=== PATIENT | male | born 1950 | race Caucasian/White ===

== ENCOUNTER 2017-05-29 15:34 | Emergency (ER) | payer MEDICARE, OTHER ==
[2017-05-29 15:58] VITALS: TEMP 98.1
--- NOTE | 2017-05-29 16:22 | ED.PDOC ---
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 Occurred: just prior to arrival Pain - Lower Extremity: moderate: Left Foot Method of Injury: other - crush injury Improving Factors: rest Worsening Factors: movement Allergies/Adverse Reactions: Allergies NO KNOWN ALLERGY Allergy (Verified 05/29/17 15:57) Home Medications: Ambulatory Orders Acetamin W/Cod #3 Tab [Tylenol w/CODEINE #3] 1 ea PO Q4HR #20 tab 05/29/17 Amoxicillin [Amoxil] 1,000 mg PO BID #30 cap 05/29/17 Review of Systems - Review of Systems Constitutional: States: no symptoms reported EENTM: States: no symptoms reported Respiratory: States: no symptoms reported Cardiology: States: no symptoms reported Musculoskeletal: States: see HPI Past Medical History (General) - Patient Medical History Hx Stroke: No Hx Congestive Heart Failure: No Hx Diabetes: No Hx Cancer: No Hx Hepatitis C: No Surgical History: cholecystectomy - Vaccination History Hx Tetanus, Diphtheria Vaccination: No Hx Influenza Vaccination: No - Social History Hx Tobacco Use: No Hx Chewing Tobacco Use: No Hx Alcohol Use: No Hx Substance Use: No Hx Substance Use Treatment: No Hx Depression: No Feels Threatened In Home Enviroment: No Feels Threatened In a Relationship: No Hx Physical Abuse: No Hx Emotional Abuse: No Hx Suspected Abuse: No Family Medical History - Family History Mother Family History: Unknown Physical Exam - Physical Exam General Appearance: Alert, No apparent distress Eyes, Ears, Nose, Throat: PERRL/EOMI, normal ENT inspection Neck: non-tender, supple Cardiovascular/Respiratory: regular rate, rhythm, no M/R/G, normal peripheral pulses, no respiratory distress Gastrointestinal/Abdominal: non-tender, no organomegaly Back: no vertebral tenderness Thigh/Hip: no evidence of injury Leg: no evidence of injury Knee: no evidence of injury Ankle: no evidence of injury Foot: bone tenderness, limited ROM - painful, soft tissue tenderness, swelling - left foot, other - superficial abrasions noted Mental Status: alert, oriented x 3 Skin: normal color, warm/dry Progress - Progress Progress: 05/29/17 16:27 Vital Signs - 8 hr 05/29/17 15:35 Temperature 98.1 F Pulse Rate [R 86 Arm] Respiratory 20 Rate Blood Pressure 154/87 [left brachial] O2 Sat by Pulse 94 L Oximetry - EKG/XRAY/CT XRAY: foot-? fracture need ct foot CT Ordered: Yes - fracture cuneiforn and 2nd metetarsal left foot Departure - Departure Clinical Impression: Crush fracture Fracture of foot Qualifiers: Encounter type: initial encounter Fracture type: closed Laterality: left Qualified Code(s): S92.902A - Unspecified fracture of left foot, initial encounter for closed fracture Time of Disposition: 17:50 Disposition: Discharge to Home or Self Care Condition: Fair Departure Forms: ED Discharge - Pt. Copy, Patient Portal Self Enrollment Instructions: Foot Fracture, DI for Foot Fracture Referrals: Rodrigo Gates MD [Primary Care Provider] - 1-2 Weeks Prescriptions: Acetamin W/Cod #3 Tab [Tylenol w/CODEINE #3] 1 ea PO Q4HR #20 tab Amoxicillin [Amoxil] 1,000 mg PO BID #30 cap Home Medications: Ambulatory Orders Acetamin W/Cod #3 Tab [Tylenol w/CODEINE #3] 1 ea PO Q4HR #20 tab 05/29/17 Amoxicillin [Amoxil] 1,000 mg PO BID #30 cap 05/29/17 Additional Instructions: CONTINUE WITH ICE PACK 3 X A DAY DURING WAKING HOURS ONLY FOR 3 DAYS ;Elevate left foot 20 degrees at bedtime;Call Dr. Jade orthopedist in am for appointment
--- NOTE | 2017-05-29 16:29 | RAD ---
EXAM DESCRIPTION: Foot,Left 2 Views CLINICAL HISTORY: 67 years, Male, Crush injury too L foot COMPARISON: None TECHNIQUE: Two views of the left foot FINDINGS: Left foot is abnormal in the region of the midfoot. Posteriorly and accessory ossicle at the least tendon insertion into the calcaneus is noted with sensory ossicle or prominent protuberance posterior to the ankle mortise noted on the lateral view. On the AP view, the first cuneiform is abnormal in appearance and almost appears to have a bifid appearance and is likely fractured. In addition there is either a large accessory ossicle at the lateral aspect of the tarsal navicular or a fracture of the lateral margin of the tarsal navicular. The metatarsals and phalanges on the AP view appear intact. A much of the findings involving the midfoot or acute and how much or chronic is difficult to assess. Consider CT or MR examination for further evaluation of the midfoot. IMPRESSION: 1. Abnormal left foot with an unusual almost bifid appearance of the first cuneiform suggesting possibly an acute or chronic fracture as well as either an accessory ossicle or fracture at the lateral margin of the tarsal navicular. Consider further evaluation with CT or MRI examination. 2. Accessory ossification at the Achilles tendon insertion. 3. No definite injury to the metatarsals or phalanges. Electronically signed by: Pasquale Moody MD 05/29/2017 4:28 PM CDT
[2017-05-29] MEDS: HYDROcodone 10MG/APAP 325MG 1 EA TAB PO ONE (16:46)
[2017-05-29] MEDS: AMOXICILLIN 500 MG CAP PO ONE (16:46)
[2017-05-29] MEDS: TETANUS,DIPHTHERIA,PERTUSSIS 1 EA SYG IM ONE (17:06)
--- NOTE | 2017-05-29 17:34 | CT ---
EXAM DESCRIPTION: Lower Extremity CLINICAL HISTORY: 67 years Male, pain left foot/crush injury COMPARISON: None. TECHNIQUE: Noncontrast CT of the left foot with MPR reformatted images. FINDINGS: A comminuted fracture of the first cuneiform involving the medial and plantar aspect of the bone is present. On coronal imaging there is hypertrophic degenerative change at the articulation between the first and second cuneiforms. A very subtle nondisplaced fracture at the inferior base of the second metatarsal is noted. Metatarsal shafts are intact. Laterally at the tarsal navicular degenerative cystic changes and hypertrophic spurring at the articulation between the lateral navicular and the calcaneus is present but without either a fracture or accessory ossicle. 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 Additional fractures involving the cuboid or the second or third cuneiform or the third through fifth metatarsal bases are not apparent. IMPRESSION: 1. Mildly comminuted the fracture of the first cuneiform inferiorly and medially in essentially anatomic alignment and small fracture at the inferior base of the second metatarsal. 2. Hypertrophic tarsal navicular that articulates and has the secondary degenerative changes with the calcaneus superiolaterally as well as inferomedially raising the possibility that the patient has an element of fibrous coalition or maldevelopment of the hindfoot. 3. Additional fractures involving the hindfoot or ankle are not apparent. 4. The first as well as third through fifth metatarsal bases are intact without additional fractures of the forefoot identified. Electronically signed by: Pasquale Moody MD 05/29/2017 5:32 PM CDT
[2017-05-29] MEDS: PROMETHAZINE HCL INJ 25 MG/ML VIAL IM ONE (18:05)
[2017-05-29] MEDS: MORPHINE SULFATE INJ 10 MG/ML VIAL IM ONE (18:05)
[2017-05-29 18:48] VITALS: O2SAT 99
[2017-05-29 20:19] VITALS: BP 164/99
== END 2017-05-29 20:05 | disposition home or self-care (01) ==
LOC: ER 15:34
DX: S92.322A Displaced fracture of second metatarsal bone, left foot, initial encounter for closed fracture (principal); S92.242A Displaced fracture of medial cuneiform of left foot, initial encounter for closed fracture; Z23 Encounter for immunization; W23.0XXA Caught, crushed, jammed, or pinched between moving objects, initial encounter; Y92.9 Unspecified place or not applicable
CPT/HCPCS: 73620; 73700; 90471; 90715; J2270; J2550

== ENCOUNTER → 2017-06-12 | Outpatient (CLI) | payer MEDICARE ==
--- NOTE | 2017-06-12 08:53 | RAD ---
EXAM DESCRIPTION: Foot,Left 3 Views CLINICAL HISTORY: FX COMPARISON: CT dated May 29, 2017. IMPRESSION: 3 views of the left foot. Fracture of the first cuneiform bone is slightly less conspicuous on today's study consistent with normal progressive healing. No other significant change is present. Electronically signed by: Rich Alberts MD 06/12/2017 8:52 AM [facility]
== END | disposition home or self-care (01) ==
LOC: RAD 07:39
PROVIDERS: ATTEND Orthopaedic Surgery
DX: S92.215D Nondisplaced fracture of cuboid bone of left foot, subsequent encounter for fracture with routine healing (principal); X58.XXXA Exposure to other specified factors, initial encounter

== ENCOUNTER → 2017-06-26 | Outpatient (CLI) | payer MEDICARE ==
--- NOTE | 2017-06-26 10:03 | RAD ---
EXAM DESCRIPTION: Foot,Left 3 Views CLINICAL HISTORY: 67 years, Male, CLOSED FX OF CUNEIFORM BONE LEFT FOOT COMPARISON: June 12, 2017, May 29, 2017 TECHNIQUE: AP, lateral, and oblique views of the left foot FINDINGS: Mild osteopenia and modest degenerative changes are present. The previously described fracture of the first cuneiform remains less conspicuous than the original study May 29, 2017. Little interval change from most recent study is noted. The degenerative hypertrophic changes at the lateral aspect of the tarsal navicular are unchanged. New injuries are not apparent. IMPRESSION: Stable left foot with incompletely healed first cuneiform fracture. Electronically signed by: Pasquale Moody MD 06/26/2017 10:01 AM [facility]
== END | disposition home or self-care (01) ==
LOC: RAD 07:16
PROVIDERS: ATTEND Orthopaedic Surgery
DX: S92.251D Displaced fracture of navicular [scaphoid] of right foot, subsequent encounter for fracture with routine healing (principal)

== ENCOUNTER 2018-08-09 17:24 | Emergency (ER) | payer MEDICARE ==
[2018-08-09] MEDS ORDERED: CHLORHEXIDINE GLUCONATE 4 % 15 ML UD TOP ONE (17:40)
[2018-08-09] MEDS ORDERED: LIDOCAINE 1% W/ EPINEPHRINE 20 ML VIAL INJ ONE (17:40)
[2018-08-09 17:46] VITALS: TEMP 97.7
--- NOTE | 2018-08-09 17:46 | ED.PDOC ---
History of Present Illness - General Chief Complaint: Laceration Time Seen by Provider: 08/09/18 17:43 Source: patient Exam Limitations: no limitations - History of Present Illness Initial Comments: Patient was working at home and pulled a metal bar down that struck his forehead. It left a u-shaped laceration in the mid-forehead. He did not fall down nor lose consciousness. It is not painful. He does not take any anti- coagulants. No other complaints. Timing/Duration: 1/2 hour Severity: mild Improving Factors: nothing Worsening Factors: nothing Associated Symptoms: denies symptoms Allergies/Adverse Reactions: Allergies NO KNOWN ALLERGY Allergy (Verified 05/29/17 15:57) Home Medications: Ambulatory Orders Omeprazole 20 mg PO DAILY 08/09/18 Review of Systems - Review of Systems Constitutional: States: no symptoms reported, chills Respiratory: States: no symptoms reported Cardiology: States: no symptoms reported Gastrointestinal/Abdominal: States: no symptoms reported Genitourinary: States: no symptoms reported Musculoskeletal: States: no symptoms reported Skin: States: see HPI Neurological: States: no symptoms reported Endocrine: States: no symptoms reported Hematologic/Lymphatic: States: no symptoms reported Past Medical History (General) - Patient Medical History Hx Stroke: No Hx Congestive Heart Failure: No Hx Diabetes: No Hx Cancer: No Hx Hepatitis C: No - Vaccination History Hx Tetanus, Diphtheria Vaccination: No Hx Influenza Vaccination: No - Social History Hx Tobacco Use: No Hx Chewing Tobacco Use: No Hx Alcohol Use: No Hx Substance Use: No Hx Substance Use Treatment: No Hx Depression: No Hx Physical Abuse: No Hx Emotional Abuse: No Hx Suspected Abuse: No Family Medical History - Family History Mother Family History: Unknown Physical Exam - Physical Exam General Appearance: Alert Eye Exam: bilateral normal Ears, Nose, Throat: normal ENT inspection Neck: non-tender, full range of motion, supple Respiratory: lungs clear, normal breath sounds Cardiovascular/Chest: regular rate, rhythm, no edema Gastrointestinal/Abdominal: normal bowel sounds, non tender, soft 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 3 cc of lidocaine with epinephrine was used to gain excellent local anesthesia. Wound was irrigated with 30 cc sterile NS. 9 interrupted sutures using 5-0 proline were placed and excellent wound edge approximation was obtained. Patient tolerated procedure well. Area was clean, dry and hemostatic upon completion. topical antibiotic applied. E.R. warnings given. Care instructions given. Questions were elicited and answered. The patient voiced understanding and agreement with the plan. Departure - Departure Clinical Impression: Laceration Disposition: Discharge to Home or Self Care Condition: Good Departure Forms: ED Discharge - Pt. Copy, Patient Portal Self Enrollment Instructions: DI for Laceration Repair, How to Care for a Laceration After Repair Diet: resume usual diet Activity: increase activity as tolerated Referrals: Rodrigo Gates MD [Primary Care Provider] - 1-2 Weeks Home Medications: Ambulatory Orders Omeprazole 20 mg PO DAILY 08/09/18 Additional Instructions: Return to your regular doctor in 5-7 days for suture removal. Return to the E.R. for increased bleeding, pus, increasing pain and swelling or redness, or temperature above 100.4.
[2018-08-09 18:28] VITALS: O2SAT 97
[2018-08-09] MEDS ORDERED: NEOMYCIN-BACITRACIN-POLYMYXIN 0.9 GM UD TOP ONE (18:28)
[2018-08-09 18:51] VITALS: BP 142/91
== END 2018-08-09 18:48 | disposition home or self-care (01) ==
LOC: ER 17:24
DX: S01.81XA Laceration without foreign body of other part of head, initial encounter (principal); W22.8XXA Striking against or struck by other objects, initial encounter; Y92.009 Unspecified place in unspecified non-institutional (private) residence as the place of occurrence of the external cause

== ENCOUNTER 2019-09-02 05:40 | Day surgery (SDC) | payer MEDICARE ==
[2019-09-02] MEDS ORDERED: MOXIFLOXACIN HCL (OPHTH) 1 DROP DROPS ONE (06:31)
[2019-09-02] MEDS ORDERED: PROPARACAINE 0.5% OPHTH SOL 15 ML BTTL ONE (06:31)
[2019-09-02] MEDS ORDERED: TROP 1%/CYCLOPEN 1%/PHENYL 2% DROPS ONE (06:31)
[2019-09-02] MEDS ORDERED: DEXAMETHASONE 0.1% OPHTH SOL 1 DROP OPHTH ONE (07:00)
[2019-09-02] MEDS ORDERED: LIDOCAINE 1% 2 ML VIAL INJ ONE (07:30)
[2019-09-02] MEDS ORDERED: PROPARACAINE 0.5% OPHTH SOL 15 ML BTTL LEFT_EYE ONE (07:30)
[2019-09-02] MEDS ORDERED: MOXIFLOXACIN HCL (OPHTH) 1 DROP DROPS BOTH_EYES ONE (07:31)
[2019-09-02] MEDS ORDERED: prednisoLONE ACETATE 1% OPHTH SOL 5 ML BTTL OPHTH ONE (07:32)
[2019-09-02] MEDS ORDERED: TOBRAMYCIN SULF 0.3 % OPHT SOL 1 DROP LEFT_EYE ONE (07:33)
[2019-09-02] MEDS ORDERED: MIDAZOLAM INJ 2 MG/2 ML VIAL ONE (08:02)
[2019-09-02] MEDS ORDERED: BRIMONIDINE 0.2% OPHTH DROPS LEFT_EYE ONE (08:02)
== END 2019-09-02 09:14 | disposition home or self-care (01) ==
LOC: AMB 05:40
PROVIDERS: ATTEND Ophthalmology
DX: H25.12 Age-related nuclear cataract, left eye (principal); Z79.899 Other long term (current) drug therapy
CPT/HCPCS: 00142; 66984; J2250

== ENCOUNTER 2019-09-16 00:42 | Day surgery (SDC) | payer MEDICARE ==
[2019-09-16] MEDS ORDERED: MOXIFLOXACIN HCL (OPHTH) 1 DROP DROPS ONE (06:12)
[2019-09-16] MEDS ORDERED: TROP 1%/CYCLOPEN 1%/PHENYL 2% DROPS ONE (06:13)
[2019-09-16] MEDS ORDERED: PROPARACAINE 0.5% OPHTH SOL 15 ML BTTL ONE (06:13)
[2019-09-16] MEDS ORDERED: LIDOCAINE 1% MPF 2 ML VIAL INJ ONE (07:22)
[2019-09-16] MEDS ORDERED: PROPARACAINE 0.5% OPHTH SOL 15 ML BTTL RIGHT_EYE ONE ×2 (07:26→07:58)
[2019-09-16] MEDS ORDERED: LIDOCAINE 1% 2 ML VIAL INJ ONE ×2 (07:27→07:58)
[2019-09-16] MEDS ORDERED: DEXAMETHASONE 0.1% OPHTH SOL 1 DROP RIGHT_EYE ONE ×2 (07:27→07:58)
[2019-09-16] MEDS ORDERED: TOBRAMYCIN SULF 0.3 % OPHT SOL 1 DROP RIGHT_EYE ONE ×2 (07:28→07:58)
[2019-09-16] MEDS ORDERED: MIDAZOLAM INJ 2 MG/2 ML VIAL ONE (07:31)
[2019-09-16] MEDS ORDERED: BRIMONIDINE 0.2% OPHTH DROPS RIGHT_EYE ONE (07:58)
[2019-09-16] MEDS ORDERED: MOXIFLOXACIN HCL (OPHTH) 1 DROP DROPS RIGHT_EYE ONE (07:58)
== END 2019-09-16 09:04 | disposition home or self-care (01) ==
LOC: AMB 00:42
PROVIDERS: ATTEND Ophthalmology
DX: H25.11 Age-related nuclear cataract, right eye (principal)
CPT/HCPCS: 00142; 66984; J2250